=== PATIENT | male | born 1985 | race Caucasian/White ===

== ENCOUNTER 2023-04-11 12:33 | Emergency (ER) | payer OTHER ==
[~2023-04-11] VITALS: Ht 170.2 cm; Wt 75.3 kg
[2023-04-11] MEDS ORDERED: ERYT.5TO BOTHEYES (15:01)
== END 2023-04-11 14:47 | disposition home or self-care (01) ==
LOC: ER 12:33
DX: B30.9 Viral conjunctivitis, unspecified (principal); J06.9 Acute upper respiratory infection, unspecified
CPT/HCPCS: 99283